=== PATIENT | male | born 1935 | race Caucasian/White ===

== ENCOUNTER 2020-09-04 11:20 | Observation (INO) ==
[2020-09-04] MEDS ORDERED: ONDANSETRON 4 MG/2 ML VIAL IV STA (11:37)
[2020-09-04] MEDS ORDERED: SODIUM CHLORIDE 0.9% 1,000 ML IV STA (11:37)
[2020-09-04 12:23] LABS: Basophils % 0.3 % (0.0-0.8); Eosinophils # 0.1 10*3/uL (0.0-0.87); Eosinophils % 1.8 % (0.00-10.9); Hematocrit 39.2 VOL% (42.0-52.0); Immature Granulocytes % 1.1 %; Immature Granulocytes Absolute 0.07 #; Lymphocytes # 0.8 10*3/uL (1.4-4.0); Lymphocytes % 13.1 % (21.2-54.2); Mean Corpuscular HGB Conc 33.2 GM/DL (32-36); Mean Corpuscular Volume 98.2 FL (87-102); Mean Platelet Volume 9.4 FL (9.6-12.0); Monocytes % 4.8 % (1.7-12.7); Neutrophils % 78.9 % (38.7-73.9); Platelet Count 304 T/CUMM (130-400); Red Blood Count 3.99 MC/CUMM (3.8-5.5); Red Cell Distribution Width 12.7 % (9.3-17.3); White Blood Count 6.3 T/CUMM (4-12)
[2020-09-04 12:47] LABS: Alanine Aminotransferase 18 U/L (16-61); Albumin 3.7 G/DL (3.4-5.0); Alkaline Phosphatase 81 U/L (45-117); Aspartate Amino Transferase 13 U/L (0-37); Bilirubin,Total < 0.39 MG/DL (0.20-1.00); Blood Urea Nitrogen 27 MG/DL (7-18); Calcium 8.7 MG/DL (8.5-10.1); Carbon Dioxide 21 MMOL/L (21-32); Estimated Glom Filtration Rate 39 ML/MIN; Glucose 284 MG/DL (74-106); Osmolality,Calculated 259.9 MOS/KG (273-304); Sodium 122 MMOL/L (136-145)
[2020-09-04 14:05] LABS: Bilirubin,Urine Negative (Negative); Blood, Urine Negative (Negative); Glucose,Urine (UA) 150 mg/dL (Negative); Ketones,Urine Negative (Negative); Mucus,Urine Occasional /LPF (Occasional); Nitrite,Urine Negative (Negative); Protein,Urine Negative; RBC,Urine <1 /HPF (0-4); Urine Appearance CLEAR (Clear); Urine Color Straw (Yellow); Urine Specific Gravity 1.008 (1.001-1.035); Urine Urobilinogen < 2.0 EU/DL (0.2-1.0)
[2020-09-04] MEDS ORDERED: INSULIN REGULAR 100 UNIT/ML IV STA (15:03)
[2020-09-04] MEDS ORDERED: DEXTROSE 50% 25 GM/50 ML VIAL IV STA (15:03)
[2020-09-04] MEDS ORDERED: SODIUM BICARBONATE 50 MEQ/50 ML VIAL IV STA (15:39)
[2020-09-04] MEDS ORDERED: DEXTROSE 50% 25 GM/50 ML VIAL IV PRN ×2 (16:38→16:41)
[2020-09-04] MEDS ORDERED: GLUCAGON 1 MG VIAL IM PRN ×2 (16:38→16:41)
[2020-09-04] MEDS ORDERED: ONDANSETRON 4 MG/2 ML VIAL IV PRN (16:41)
[2020-09-04] MEDS: SODIUM CHLORIDE 0.9% 1,000 ML IV SCH (18:37)
[2020-09-04] MEDS: LACTULOSE 20 GM/30 ML UDCUP PO SCH ×2 (18:37→22:13)
[2020-09-04] MEDS: PANTOPRAZOLE 40 MG TABLET PO SCH (18:37)
[2020-09-04] MEDS: ENOXAPARIN 40 MG/0.4 ML SYRINGE SUBCUT SCH (22:13)
[2020-09-04] MEDS: INSULIN LISPRO 100 UNIT/ML SUBCUT SCH (22:14)
[2020-09-05] MEDS: LACTULOSE 20 GM/30 ML UDCUP PO SCH ×2 (00:06→05:18)
[2020-09-05] MEDS ORDERED: ALBUTEROL 2.5 MG/3 ML NEB RESP TX PRN (00:45)
[2020-09-05] MEDS: SODIUM CHLORIDE 0.9% 1,000 ML IV SCH ×2 (05:18→19:03)
[2020-09-05 05:31] LABS: Basophils # 0.1 10*3/uL (0.0-0.2); Basophils % 0.5 % (0.0-0.8); Eosinophils # 0.4 10*3/uL (0.0-0.87); Eosinophils % 3.6 % (0.00-10.9); Hematocrit 39.9 VOL% (42.0-52.0); Hemoglobin 12.9 GM/DL (14.0-18.0); Lymphocytes # 1.7 10*3/uL (1.4-4.0); Lymphocytes % 16.7 % (21.2-54.2); Mean Corpuscular HGB Conc 32.3 GM/DL (32-36); Mean Corpuscular Volume 102.3 FL (87-102); Mean Platelet Volume 9.8 FL (9.6-12.0); Monocytes % 9.9 % (1.7-12.7); Neutrophils % 68.3 % (38.7-73.9); Platelet Count 336 T/CUMM (130-400); White Blood Count 10.2 T/CUMM (4-12)
[2020-09-05 05:58] LABS: Hypochromasia Slight; Microcytosis Slight; Platelet Estimate Adequate
[2020-09-05 06:04] LABS: Calcium 8.3 MG/DL (8.5-10.1); Osmolality,Calculated 276.2 MOS/KG (273-304); Potassium 5.7 MMOL/L (3.5-5.1)
[2020-09-05] MEDS ORDERED: SODIUM POLYSTYRENE SULFATE 15 GM/60 ML BOTTLE PO SCH (09:00)
[2020-09-05] MEDS: PANTOPRAZOLE 40 MG TABLET PO SCH (09:02)
[2020-09-05] MEDS: INSULIN LISPRO 100 UNIT/ML SUBCUT SCH ×4 (10:15→20:39)
[2020-09-05] MEDS ORDERED: LACTULOSE 20 GM/30 ML UDCUP PO PRN (14:55)
[2020-09-05] MEDS: ENOXAPARIN 40 MG/0.4 ML SYRINGE SUBCUT SCH (20:40)
[2020-09-06] MEDS: SODIUM CHLORIDE 0.9% 1,000 ML IV SCH ×2 (01:05→05:54)
[2020-09-06 05:54] LABS: Basophils % 0.3 % (0.0-0.8); Eosinophils # 0.2 10*3/uL (0.0-0.87); Eosinophils % 2.6 % (0.00-10.9); Hematocrit 35.7 VOL% (42.0-52.0); Hemoglobin 11.5 GM/DL (14.0-18.0); Immature Granulocytes Absolute 0.07 #; Lymphocytes # 1.3 10*3/uL (1.4-4.0); Lymphocytes % 18.6 % (21.2-54.2); Mean Corpuscular HGB Conc 32.2 GM/DL (32-36); Mean Corpuscular Volume 103.8 FL (87-102); Mean Platelet Volume 9.5 FL (9.6-12.0); Monocytes % 7.5 % (1.7-12.7); Platelet Count 246 T/CUMM (130-400); Red Blood Count 3.44 MC/CUMM (3.8-5.5); White Blood Count 6.9 T/CUMM (4-12)
[2020-09-06 06:51] LABS: Calcium 7.9 MG/DL (8.5-10.1); Osmolality,Calculated 276.5 MOS/KG (273-304); Potassium 4.5 MMOL/L (3.5-5.1)
[2020-09-06] MEDS: INSULIN LISPRO 100 UNIT/ML SUBCUT SCH ×2 (07:35→12:40)
[2020-09-06 07:57] VITALS: BP 144/60
[2020-09-06] MEDS ORDERED: POLYETHYLENE GLYCOL POWDER 17 GM PACK PO SCH (09:00)
[2020-09-06] MEDS: PANTOPRAZOLE 40 MG TABLET PO SCH (09:09)
[2020-09-06] MEDS: LACTULOSE 20 GM/30 ML UDCUP PO SCH ×2 (09:10→09:20)
== END 2020-09-06 12:40 | disposition home health service (06) ==
LOC: SUATTDRO → EDUNIT# → N.ED 11:20 → N.EDINP 11:20 → SUATTDRO 16:38 → N.EDINP 19:30 → N.5E 19:40
PROVIDERS: ADMIT Internal Medicine; ATTEND Internal Medicine

== ENCOUNTER 2021-04-02 15:03 | Observation (INO) ==
[2021-04-02] MEDS ORDERED: ASPIRIN 325 MG TABLET PO STA (16:17)
[2021-04-02] MEDS ORDERED: ENOXAPARIN 100 MG/ML SYRINGE SUBCUT STA (16:17)
[2021-04-02 16:40] LABS: Basophils % 0.3 % (0.0-0.8); Eosinophils # 0.1 10*3/uL (0.0-0.87); Eosinophils % 1.2 % (0.00-10.9); Hematocrit 36.3 VOL% (42.0-52.0); Hemoglobin 12.1 GM/DL (14.0-18.0); Immature Granulocytes % 0.7 %; Immature Granulocytes Absolute 0.04 #; Lymphocytes # 0.8 10*3/uL (1.4-4.0); Mean Corpuscular HGB Conc 33.3 GM/DL (32-36); Mean Corpuscular Volume 99.7 FL (87-102); Mean Platelet Volume 10.3 FL (9.6-12.0); Monocytes % 8.6 % (1.7-12.7); Neutrophils % 75.2 % (38.7-73.9); Platelet Count 219 T/CUMM (130-400); Red Blood Count 3.64 MC/CUMM (3.8-5.5); Red Cell Distribution Width 13.3 % (9.3-17.3); White Blood Count 5.9 T/CUMM (4-12)
[2021-04-02 17:01] LABS: Albumin 3.2 G/DL (3.4-5.0); Bilirubin,Total 0.4 MG/DL (0.20-1.00); Calcium 8.4 MG/DL (8.5-10.1); Potassium 4.2 MMOL/L (3.5-5.1); Total Protein 6.4 G/DL (6.4-8.2)
[2021-04-02] MEDS ORDERED: ACETAMINOPHEN 325 MG TABLET PO PRN (18:03)
[2021-04-02] MEDS ORDERED: ONDANSETRON 4 MG/2 ML VIAL IV PRN (18:03)
[2021-04-02] MEDS ORDERED: DEXTROSE 50% 25 GM/50 ML VIAL IV PRN (18:03)
[2021-04-02] MEDS ORDERED: GLUCAGON 1 MG VIAL IM PRN ×2 (18:03)
[2021-04-02] MEDS ORDERED: DEXTROSE 10% 250 ML BAG IV PRN (18:10)
[2021-04-02] MEDS ORDERED: ENOXAPARIN 60 MG/0.6 ML SYRINGE SUBCUT SCH (18:30)
[2021-04-02] MEDS ORDERED: ENOXAPARIN 40 MG/0.4 ML SYRINGE SUBCUT SCH (18:30)
[2021-04-03] MEDS: INSULIN LISPRO 100 UNIT/ML SUBCUT SCH ×2 (01:58→09:40)
[2021-04-03 04:16] LABS: Basophils % 0.3 % (0.0-0.8); Eosinophils # 0.1 10*3/uL (0.0-0.87); Hematocrit 35.6 VOL% (42.0-52.0); Hemoglobin 11.7 GM/DL (14.0-18.0); Immature Granulocytes % 0.5 %; Immature Granulocytes Absolute 0.03 #; Lymphocytes # 0.6 10*3/uL (1.4-4.0); Lymphocytes % 9.8 % (21.2-54.2); Mean Corpuscular HGB Conc 32.9 GM/DL (32-36); Mean Corpuscular Volume 100.8 FL (87-102); Mean Platelet Volume 11.2 FL (9.6-12.0); Neutrophils % 82.4 % (38.7-73.9); Platelet Count 197 T/CUMM (130-400); Red Blood Count 3.53 MC/CUMM (3.8-5.5); Red Cell Distribution Width 13.5 % (9.3-17.3); White Blood Count 5.8 T/CUMM (4-12)
[2021-04-03 06:58] LABS: Albumin 3.1 G/DL (3.4-5.0); Bilirubin,Total 0.4 MG/DL (0.20-1.00); Calcium 8.8 MG/DL (8.5-10.1); Osmolality,Calculated 274.1 MOS/KG (273-304); Total Protein 6.6 G/DL (6.4-8.2)
[2021-04-03] MEDS ORDERED: LEVOTHYROXINE 100 MCG TABLET PO SCH (07:00)
[2021-04-03] MEDS ORDERED: LINACLOTIDE 145 MCG CAPSULE PO SCH (07:30)
[2021-04-03] MEDS ORDERED: carvediloL 12.5 MG TABLET PO SCH (08:00)
[2021-04-03] MEDS ORDERED: FENOFIBRATE 160 MG TABLET PO SCH (09:00)
[2021-04-03] MEDS ORDERED: ASPIRIN EC 81 MG TABLET PO SCH (09:00)
[2021-04-03] MEDS ORDERED: FERROUS SULFATE 325 MG TABLET PO SCH (09:00)
[2021-04-03] MEDS ORDERED: SIMVASTATIN 10 MG TABLET PO SCH (09:00)
[2021-04-03] MEDS ORDERED: predniSONE 5 MG TABLET PO SCH (09:00)
[2021-04-03] MEDS ORDERED: MONTELUKAST 10 MG TABLET PO SCH (09:00)
[2021-04-03] MEDS ORDERED: TAMSULOSIN 0.4 MG CAPSULE PO SCH (09:00)
[2021-04-03] MEDS ORDERED: AZITHROMYCIN 250 MG TABLET PO ONE (10:17)
[2021-04-03 12:11] VITALS: BP 110/61
[2021-04-03] MEDS ORDERED: MIRTAZAPINE 30 MG TABLET PO SCH (21:00)
== END 2021-04-03 13:39 | disposition home or self-care (01) ==
LOC: EDBD → EDUNIT# → N.ED 15:03 → N.EDINP 15:03 → SUATTDRO 04-03 01:20 → N.EDINP 04-03 02:19 → N.TELES 04-03 04:17
PROVIDERS: ADMIT Internal Medicine Geriatric Medicine; ATTEND Internal Medicine

== ENCOUNTER 2022-03-29 16:58 | Inpatient (IN) ==
[2022-03-29] MEDS ORDERED: SODIUM CHLORIDE 0.9% 1,000 ML IV STA (17:09)
[2022-03-29] MEDS ORDERED: ALBUTEROL 2.5 MG/3 ML NEB RESP TX STA (17:09)
[2022-03-29] MEDS ORDERED: ASPIRIN 325 MG TABLET PO STA (17:09)
[2022-03-29] MEDS ORDERED: methylPREDNISolone SOD SUC 125 MG/2 ML VIAL IV STA (17:09)
[2022-03-29] MEDS ORDERED: ONDANSETRON 4 MG/2 ML VIAL IV ONE (17:09)
[2022-03-29] MEDS ORDERED: ACETAMINOPHEN 325 MG TABLET PO ONE (17:20)
[2022-03-29 17:30] LABS: Arterial Base Excess iSTAT -1 MMOL/L (-2.5-2.5); Arterial Bicarbonate iSTAT 20.8 MMOL/L (20-26); Arterial O2 Saturation iSTAT 91 % (95-100); Arterial PCO2 iSTAT 27 MM HG (35-48); Arterial PO2 iSTAT 55 MM HG (80-95); Arterial Total CO2 iSTAT 22 MMO/L (23-27); Arterial pH iSTAT 7.489 (7.35-7.45)
[2022-03-29 17:34] LABS: Basophils % 0.2 % (0.0-0.8); Eosinophils % 0.2 % (0.00-10.9); Hematocrit 36.8 VOL% (42.0-52.0); Hemoglobin 12.3 GM/DL (14.0-18.0); Immature Granulocytes % 0.6 %; Immature Granulocytes Absolute 0.06 #; Lymphocytes # 0.7 10*3/uL (1.4-4.0); Lymphocytes % 6.1 % (21.2-54.2); Mean Corpuscular HGB Conc 33.4 GM/DL (32-36); Mean Corpuscular Volume 99.7 FL (87-102); Mean Platelet Volume 9.8 FL (9.6-12.0); Neutrophils % 83.9 % (38.7-73.9); Platelet Count 272 T/CUMM (130-400); Red Blood Count 3.69 MC/CUMM (3.8-5.5); Red Cell Distribution Width 12.8 % (9.3-17.3); White Blood Count 10.8 T/CUMM (4-12)
[2022-03-29 17:43] LABS: INR 1.1; PT Patient Result 12.1 SECS (10.1-12.1)
[2022-03-29 17:52] LABS: Albumin 3.2 G/DL (3.4-5.0); Bilirubin,Total 0.6 MG/DL (0.20-1.00); Calcium 8.5 MG/DL (8.5-10.1); Potassium 4.5 MMOL/L (3.5-5.1)
[2022-03-29] MEDS ORDERED: AZITHROMYCIN INJ 500 MG in SODIUM CHLORIDE 0.9% 250 ML IV STA (17:56)
[2022-03-29] MEDS ORDERED: cefTRIAXone 1,000 MG in SODIUM CHLORIDE 0.9% 100 ML IV STA (17:56)
[2022-03-29] MEDS ORDERED: guaiFENesin/DM ER 600-30 MG TABLET PO PRN (18:39)
[2022-03-29] MEDS ORDERED: GLUCAGON 1 MG VIAL IM PRN (18:39)
[2022-03-29] MEDS ORDERED: DOCUSATE SODIUM 100 MG CAPSULE PO PRN (18:39)
[2022-03-29] MEDS ORDERED: ONDANSETRON 4 MG/2 ML VIAL IV PRN (18:39)
[2022-03-29] MEDS ORDERED: ACETAMINOPHEN 325 MG TABLET PO PRN (18:39)
[2022-03-29] MEDS: ALBUTEROL/IPRATROPIUM 3 ML NEB RESP TX SCH (18:50)
[2022-03-29] MEDS ORDERED: DEXTROSE 10% 250 ML BAG IV PRN (18:53)
[2022-03-29 18:58] LABS: Bacteria,Urine Occasional /HPF (Few); Mucus,Urine Occasional /LPF (Occasional); RBC,Urine 4 /HPF (0-4); Squamous Epithelial Cell,Urine Occasional /HPF (0-10)
[2022-03-29 18:59] LABS: Urine Appearance Slightly Hazy (Clear); Urine Color Yellow (Yellow); Urine pH 5.5 (4.5-8.0)
[2022-03-29 19:00] LABS: Bilirubin,Urine Negative (Negative); Blood, Urine Small mg/dL (Negative); Glucose,Urine (UA) 500 mg/dL (Negative); Ketones,Urine Negative (Negative); Nitrite,Urine Negative (Negative); Protein,Urine Negative (Negative)
[2022-03-29] MEDS: ENOXAPARIN 30 MG/0.3 ML SYRINGE SUBCUT SCH (21:12)
[2022-03-29] MEDS: INSULIN REGULAR 100 UNIT/ML SUBCUT SCH (21:12)
[2022-03-29] MEDS: traZODone 50 MG TABLET PO PRN (21:13)
[2022-03-30] MEDS: ALBUTEROL/IPRATROPIUM 3 ML NEB RESP TX SCH ×4 (00:34→18:55)
[2022-03-30] MEDS: methylPREDNISolone SOD SUC 40 MG/1 ML VIAL IV SCH ×2 (05:45→22:00)
[2022-03-30 06:09] LABS: Hematocrit 33.3 VOL% (42.0-52.0); Hemoglobin 10.7 GM/DL (14.0-18.0); Immature Granulocytes % 0.7 %; Immature Granulocytes Absolute 0.06 #; Lymphocytes # 0.5 10*3/uL (1.4-4.0); Lymphocytes % 5.3 % (21.2-54.2); Mean Corpuscular HGB Conc 32.1 GM/DL (32-36); Mean Corpuscular Volume 102.8 FL (87-102); Mean Platelet Volume 9.7 FL (9.6-12.0); Monocytes # 0.6 10*3/uL (0.11-0.8); Monocytes % 6.5 % (1.7-12.7); Neutrophils % 87.5 % (38.7-73.9); Platelet Count 232 T/CUMM (130-400); Red Blood Count 3.24 MC/CUMM (3.8-5.5); Red Cell Distribution Width 12.8 % (9.3-17.3); White Blood Count 8.9 T/CUMM (4-12)
[2022-03-30 06:35] LABS: Calcium 8.2 MG/DL (8.5-10.1); Osmolality,Calculated 288.5 MOS/KG (273-304); Potassium 4.5 MMOL/L (3.5-5.1); Thyroid Stimulating Hormone 0.421 uIU/ml (0.358-3.74)
[2022-03-30] MEDS: INSULIN REGULAR 100 UNIT/ML SUBCUT SCH ×4 (10:58→23:14)
[2022-03-30] MEDS: cefTRIAXone 2,000 MG in SODIUM CHLORIDE 0.9% 100 ML IV SCH (11:09)
[2022-03-30] MEDS: AZITHROMYCIN 250 MG TABLET PO SCH (11:10)
[2022-03-30] MEDS: PANTOPRAZOLE 40 MG TABLET PO SCH (11:10)
[2022-03-30] MEDS ORDERED: NITROGLYCERIN SL 0.4 MG TABLET SL PRN (13:07)
[2022-03-30] MEDS ORDERED: DOCUSATE SODIUM 100 MG CAPSULE PO PRN (13:07)
[2022-03-30] MEDS ORDERED: FUROSEMIDE 40 MG/4 ML VIAL IV ONE (15:00)
[2022-03-30] MEDS: TAMSULOSIN 0.4 MG CAPSULE PO SCH (16:39)
[2022-03-30] MEDS: carvediloL 6.25 MG TABLET PO SCH (16:39)
[2022-03-30] MEDS ORDERED: MIRTAZAPINE 30 MG TABLET PO SCH (21:00)
[2022-03-30] MEDS ORDERED: SIMVASTATIN 10 MG TABLET PO SCH (21:00)
[2022-03-30] MEDS: traZODone 50 MG TABLET PO PRN (22:00)
[2022-03-30] MEDS: ENOXAPARIN 30 MG/0.3 ML SYRINGE SUBCUT SCH (22:00)
[2022-03-31] MEDS: ALBUTEROL/IPRATROPIUM 3 ML NEB RESP TX SCH ×2 (00:25→07:41)
[2022-03-31 05:30] LABS: Hematocrit 32.3 VOL% (42.0-52.0); Hemoglobin 10.3 GM/DL (14.0-18.0); Immature Granulocytes % 0.6 %; Immature Granulocytes Absolute 0.04 #; Lymphocytes # 0.4 10*3/uL (1.4-4.0); Lymphocytes % 6.1 % (21.2-54.2); Mean Corpuscular HGB Conc 31.9 GM/DL (32-36); Mean Corpuscular Volume 103.2 FL (87-102); Mean Platelet Volume 10.3 FL (9.6-12.0); Monocytes # 0.2 10*3/uL (0.11-0.8); Monocytes % 3.2 % (1.7-12.7); Neutrophils % 90.1 % (38.7-73.9); Platelet Count 238 T/CUMM (130-400); Red Blood Count 3.13 MC/CUMM (3.8-5.5); Red Cell Distribution Width 12.7 % (9.3-17.3); White Blood Count 6.5 T/CUMM (4-12)
[2022-03-31 05:50] LABS: Calcium 8.7 MG/DL (8.5-10.1); Osmolality,Calculated 295.7 MOS/KG (273-304); Potassium 4.7 MMOL/L (3.5-5.1)
[2022-03-31] MEDS ORDERED: LEVOTHYROXINE 100 MCG TABLET PO SCH (06:30)
[2022-03-31 07:30] VITALS: BP 143/71
[2022-03-31] MEDS: INSULIN REGULAR 100 UNIT/ML SUBCUT SCH (08:55)
[2022-03-31] MEDS: methylPREDNISolone SOD SUC 40 MG/1 ML VIAL IV SCH (08:56)
[2022-03-31] MEDS: cefTRIAXone 2,000 MG in SODIUM CHLORIDE 0.9% 100 ML IV SCH (08:57)
[2022-03-31] MEDS: PANTOPRAZOLE 40 MG TABLET PO SCH (08:59)
[2022-03-31] MEDS: carvediloL 6.25 MG TABLET PO SCH (09:00)
[2022-03-31] MEDS ORDERED: FENOFIBRATE 160 MG TABLET PO SCH (09:00)
[2022-03-31] MEDS ORDERED: DAPAGLIFLOZIN 10 MG TABLET PO SCH (09:00)
[2022-03-31] MEDS: TAMSULOSIN 0.4 MG CAPSULE PO SCH (09:00)
[2022-03-31] MEDS ORDERED: ASPIRIN EC 81 MG TABLET PO SCH (09:00)
[2022-03-31] MEDS ORDERED: MONTELUKAST 10 MG TABLET PO SCH (09:00)
[2022-03-31] MEDS: AZITHROMYCIN 250 MG TABLET PO SCH (09:00)
[2022-04-01] MEDS ORDERED: CYANOCOBALAMIN 1000 MCG/1 ML VIAL IM SCH (09:00)
[2022-04-01] MEDS ORDERED: FERROUS SULFATE 325 MG TABLET PO SCH (09:00)
== END 2022-03-31 10:21 | disposition home health service (06) | DRG 193 ==
LOC: EDBD → EDUNIT# → N.ED 16:58 → SUATTDRO 18:37 → N.EDINP 18:37 → N.2E 20:13
PROVIDERS: ADMIT Internal Medicine; ATTEND Internal Medicine